=== PATIENT | male | born 1990 | race Caucasian/White ===

== ENCOUNTER 2020-12-01 21:04 | Observation (INO) ==
[2020-12-01] MEDS ORDERED: Isovue-370 500 ML BOTTLE IVP ONE (22:18)
[2020-12-01 22:30] LABS: Hemoglobin 15.9 g/dL (12.9-16.9); Mean Corpuscular HGB Conc 34.6 g/dL (31.6-35.5); Mean Corpuscular Hemoglobin 30.6 pg (28.0-33.3); Mean Corpuscular Volume 88.5 fL (83.0-100.0); Mean Platelet Volume 8.9 fL (9.4-12.4); Platelet Count 305 K/mcL (140-400); Red Cell Distribution Width 12.2 % (11.5-14.5); White Blood Count 8.5 K/mcL (4.3-11.1)
[2020-12-01 22:37] LABS: Prothrombin Time 11.8 Seconds (9.4-12.1)
[2020-12-01 22:53] LABS: BUN/Creatinine Ratio 17 (6-26); Blood Urea Nitrogen 14 mg/dL (6-20); Calcium 9.8 mg/dL (8.6-10.3); Carbon Dioxide 25 mEq/L (23-29); Chloride 104 mEq/L (98-107); Glucose 99 mg/dL (70-105); Osmolality,Calculated 289 (280-300); Potassium 4.2 mEq/L (3.5-5.1); Sodium 139 mEq/L (136-145); eGFR For African Americans > 60 (> 60); eGFR For Non-African Americans > 60 (> 60)
[2020-12-01 22:54] LABS: Troponin I < 0.03 ng/mL (< 0.04)
[2020-12-01 23:01] LABS: Lipase 36 Units/L (11-82)
[2020-12-01] MEDS ORDERED: Metoclopramide 10 MG/2 ML VIAL IVP ONE (23:23)
[2020-12-01] MEDS ORDERED: Acetaminophen 325 MG TABLET PO PRN (23:34)
[2020-12-01] MEDS ORDERED: Aspirin 325 MG TABLET PO ONE (23:58)
[2020-12-02 00:21] LABS: Alanine Aminotransferase 15 Units/L (7-52); Albumin 4.5 g/dL (3.5-5.7); Albumin/Globulin Ratio 1.6 (1.1-2.2); Alkaline Phosphatase 70 Units/L (34-104); Aspartate Amino Transferase 19 Units/L (13-39); Bilirubin,Indirect 0.3 mg/dL (0.0-1.0); Bilirubin,Total 0.3 mg/dL (0.3-1.0); Globulin 2.8 g/dL (2.4-3.5); Total Protein 7.3 g/dL (6.4-8.9)
[2020-12-02 00:37] LABS: Bilirubin,Urine Negative (Negative); Blood,Urine Negative (Negative); Clarity,Urine Clear (Clear); Color,Urine Colorless (Yellow); Glucose,Urine (UA) Normal (Normal); Ketones,Urine Negative (Negative); Leukocyte Esterase,Urine Negative (Negative); Nitrite,Urine Negative (Negative); Protein,Urine Negative (Neg-Trace); Urobilinogen,Urine Normal (Normal)
[2020-12-02 00:48] LABS: Amphetamine Screen,Urine Negative ng/mL (Cutoff=1000); Barbiturate Screen,Urine Negative ng/mL (Cutoff=200); Benzodiazepines Screen,Urine Negative ng/mL (Cutoff=200); Cannabinoid Screen,Urine Negative ng/mL (Cutoff = 50); Cocaine Screen,Urine Negative ng/mL (Cutoff= 300); Opiate Screen,Urine Negative ng/mL (Cutoff=300); Phencyclidine Screen,Urine Negative ng/mL (Cutoff=25)
[2020-12-02 06:49] LABS: BUN/Creatinine Ratio 16 (6-26); Blood Urea Nitrogen 13 mg/dL (6-20); Calcium 9.4 mg/dL (8.6-10.3); Carbon Dioxide 28 mEq/L (23-29); Chloride 107 mEq/L (98-107); Glucose 147 mg/dL (70-105); Osmolality,Calculated 293 (280-300); Potassium 3.7 mEq/L (3.5-5.1); Sodium 140 mEq/L (136-145); eGFR For African Americans > 60 (> 60); eGFR For Non-African Americans > 60 (> 60)
[2020-12-02 09:13] LABS: Estimated Average Glucose 126 mg/dl
[2020-12-02 12:53] VITALS: BP 121/81
== END 2020-12-02 16:25 | disposition home or self-care (01) ==
LOC: EMEROOARM 21:04 → 2NENU 21:04 → SUATTDRO 12-02 00:15 → 2NENU 12-02 01:22
PROVIDERS: ADMIT Internal Medicine; ATTEND Student in an Organized Health Care Education/Training Program